=== PATIENT | male | born 1955 | race Caucasian/White ===

== ENCOUNTER 2016-09-12 10:16 | Emergency (ER) | payer SELFPAY ==
[2016-09-12] MEDS ORDERED: SODIUM BICARBONATE 8.4% INJ 50 ML SYRINGE ONE (10:17)
[2016-09-12] MEDS ORDERED: EPINEPHrine 1MG/10ML SYRINGE 1.5IN ONE (10:17)
[2016-09-12] MEDS ORDERED: CALCIUM CHLORIDE 10% 1 GM/10 ML SYR ONE (10:17)
--- NOTE | 2016-09-12 14:21 | EDDOCDS ---
Nurse's Notes [facility] Name: Gregg Barahona Age: 60 yrs Sex: Male : 1955 Arrival Date: 09/12/2016 Time: 10:16 Bed 21 Private MD: Diagnosis: Cardiac arrest Presentation: 09/12 10:23 Presenting complaint:. kc3 10:31 Presenting complaint: EMS states: [place] for kc3 unknown amount ot time. Method of arrival: Ambulance: direct to room. Care prior to arrival: oral intubation, Pt intubated at 22cm at the lip with #7 by EMS FIRE SUPPORT SPECIALIST. CPR performed by EMS and is still in progress Medications administered prior to arrival:. Compressions began prior to arrival. 10:31 Acuity: MARCIN Level 1 kc3 10:32 Care prior to arrival: Medications administered prior to arrival: 2mg intranasal kc3 Narcan, and 2 doses of 1 mg Epi administered by EMS FIRE SUPPORT SPECIALIST. Historical: - Allergies: Unable to obtain; - Home Meds: 1. Unknown - PMHx: Unable to obtain; - PSHx: Unable to obtain; Screenin:04 Abuse/DV Screen: The patient / caregiver reports he/she is: pt cannot be assessed for kc3 living situation at this time. Nutritional screening: Unable to Assess. Assessment: 11:04 CPR assessment: unresponsive, no respiratory effort, intubated, cyanotic. Cardiac kc3 rhythm is asystole. General:. Neurological: Level of Consciousness is unresponsive. 11:08 General: SEE SCANNED CPR FLOWSHEET FOR DOCUMENTATION. . kc3 12:16 General: One benefit card for Maricel Kohler and one benefit card for Jean Escobedo given kc3 to Officer massiel Martínez #[id number] witnessed by Loni Aguero RN. . 12:29 General: black cell phone given to scenario writer by EMs that brought pt in- placed in pt srm belonging bag. Vital Signs: 10:16 kc3 10:20 Temp 93.7(R); kc3 11:12 BP 0 / 0; Pulse 0; Resp 0; Pulse Ox 0% ; Weight 71.4 kg; kc3 10:16 VS unable to obtain at time of arrival kc3 ED Course: 10:17 Patient visited by Chantal Doll, Gravity Prospecting Operator. deg 10:17 Orin Reed,RN is Primary Nurse. deg 10:17 Patient moved to Waiting deg 10:17 Patient moved to 1 deg 10:32 Patient name changed from Justin\S\\S\Quinn\S\ to Gregg\S\ \S\Jun. EDMS 10:38 Patient name changed from Gregg\S\ \S\Jun\S\ to Gregg\S\J\S\Jun. EDMS 10:40 Rashmi Napier MD is Attending Physician. fg 10:40 Patient visited by Rashmi Napier MD. fg 11:09 Patient moved to 21 hs1 11:22 [facility] Payment Agreement was scanned into [employer] and attached to record. jp5 12:49 Other: CHECLIST AND BELONGINGS was scanned into [employer] and attached to record. deg 13:29 Rashmi Napier MD is Pronouncing Provider. fg 14:18 Other: MAX CART RECORD was scanned into [employer] and attached to record. deg Administered Medications: 10:17 Drug: Sodium Bicarbonate 1 amp {Note: administered by Loni Aguero RN.} Route: kc3 IVP; Site: left antecubital; 10:17 Drug: Calcium Chloride 1 grams [calcium chloride 100 mg/mL (10 %) intravenous syringe kc3 (10 mL)] {Note: administered by Loni Aguero RN .} Route: IVP; Site: left antecubital; 10:19 Drug: EPINEPHrine 1 mg [epinephrine 0.1 mg/mL injection syringe (10 mL)] {Note: kc3 administered by Loni Aguero RN .} Route: IVP; Site: left antecubital; 10:22 Drug: EPINEPHrine 1 mg [epinephrine 0.1 mg/mL injection syringe (10 mL)] {Note: kc3 administered by Loni Aguero RN.} Route: IVP; Site: left antecubital; RT: 10:28 Ventilation: Ventilator Settings. Assist ventilation with Ambu bag. CPR Time: 8Minutes. cs15 Order Results: There are currently no results for this order. Outcome: 11:13 Code Team Members : Rashmi Napier MD Medication Nurse: Loni Aguero RN Other Team kc3 Members: MARC Kwong Nursing Vp & General Counsel: Vivian Swann RN ED Worship Leader: ONEL Couch. Rhythm strips are placed in the patient chart. Outcome Patient . Patient : Time of 10:25 Pronounced by Rashmi Napier MD Family Notified: by Shy Lindsay, ERIC. [facility] MD notified Dr. Mondragon by Dr. Napier. Condition: . 11:19 Condition: Waiting for family arrive prior to taking pt to [facility]. 3 13:30 Patient . fg 14:21 Patient left the ED. [facility] Signatures: Dispatcher Med[employer] EDMS Chantal Doll, Gravity Prospecting Operator Unit deg Shy Lindsay, RN ERIC Loni Wells RN RN [facility] Angie Crum RN RN 1 Alexandra Carpenter 5 Rashmi Napier MD MD Orin Reed RN RN 3 Yvon Walters,RT RT cs15 Corrections: (The following items were deleted from the chart) 10:57 10:56 VS unable to obtain at time of arrival ; [email or web address] 11:12 10:31 Care prior to arrival: oral intubation, CPR performed by EMS and is still in kc3 progress [facility] 11:12 10:32 Care prior to arrival: Medications administered prior to arrival: [place] [id number] MTDD
--- NOTE | 2016-09-12 14:21 | EDDOCDS ---
Physician Documentation [facility] Name: Gregg Barahona Age: 60 yrs Sex: Male : 1955 Arrival Date: 09/12/2016 Time: 10:16 Bed 21 Private MD: Disposition: Patient pronounced on 09/12/16 10:25 by Rashmi Napier. Impression: Cardiac arrest. Historical: - Allergies: Unable to obtain; - Home Meds: 1. Unknown - PMHx: Unable to obtain; - PSHx: Unable to obtain; Vital Signs: 09/12 10:16 kc3 10:20 Temp 93.7(R); kc3 11:12 BP 0 / 0; Pulse 0; Resp 0; Pulse Ox 0% ; Weight 71.4 kg / 157.41 lbs; kc3 10:16 VS unable to obtain at time of arrival kc3 MDM: 11:22 [facility] Payment Agreement was scanned into [employer] and attached to record. jp5 11:22 Financial registration complete. jp5 12:49 Other: CHECLIST AND BELONGINGS was scanned into [employer] and attached to record. deg 14:18 Other: MAX CART RECORD was scanned into [employer] and attached to record. deg Administered Medications: 10:17 Drug: Sodium Bicarbonate 1 amp {Note: administered by Loni Aguero RN.} Route: kc3 IVP; Site: left antecubital; 10:17 Drug: Calcium Chloride 1 grams [calcium chloride 100 mg/mL (10 %) intravenous syringe kc3 (10 mL)] {Note: administered by Loni Aguero RN .} Route: IVP; Site: left antecubital; 10:19 Drug: EPINEPHrine 1 mg [epinephrine 0.1 mg/mL injection syringe (10 mL)] {Note: kc3 administered by Loni Aguero RN .} Route: IVP; Site: left antecubital; 10:22 Drug: EPINEPHrine 1 mg [epinephrine 0.1 mg/mL injection syringe (10 mL)] {Note: kc3 administered by Loni Aguero RN.} Route: IVP; Site: left antecubital; Signatures: Chantal Doll, Trimming Caser Unit deg Shy Lindsay RN RN kpj Price, Jennalee jp5 Napier, Rashmi, MD MD fg Reed,Orin,RN RN kc3 The chart was reviewed and I authenticate all verbal orders and agree with the evaluation and treatment provided.Attachments: : [facility] Payment Agreement jp5 MTDD
--- NOTE | 2016-09-14 15:23 | EDDOCDS ---
Physician Documentation [facility] Name: Gregg Barahona Age: 60 yrs Sex: Male : 1955 Arrival Date: 09/12/2016 Time: 10:16 Bed 21 Private MD: Disposition: Patient pronounced on 09/12/16 10:25 by Rashmi Napier. Impression: Cardiac arrest. Historical: - Allergies: Unable to obtain; - Home Meds: 1. Unknown - PMHx: Unable to obtain; - PSHx: Unable to obtain; Vital Signs: 09/12 10:16 kc3 10:20 Temp 93.7(R); kc3 11:12 BP 0 / 0; Pulse 0; Resp 0; Pulse Ox 0% ; Weight 71.4 kg / 157.41 lbs; kc3 10:16 VS unable to obtain at time of arrival kc3 MDM: 11:22 [facility] Payment Agreement was scanned into Zim[employer] and attached to record. jp5 11:22 Financial registration complete. jp5 12:49 Other: CHECLIST AND BELONGINGS was scanned into [employer] and attached to record. deg 14:18 Other: MAX CART RECORD was scanned into [employer] and attached to record. deg 09/13 04:13 T-Sheet-- Draft Copy was scanned into [employer] and attached to record. hs2 09:55 Rhythm Strip was scanned into [employer] and attached to record. gb Administered Medications: 09/12 10:17 Drug: Sodium Bicarbonate 1 amp {Note: administered by Loni Aguero RN.} Route: kc3 IVP; Site: left antecubital; 10:17 Drug: Calcium Chloride 1 grams [calcium chloride 100 mg/mL (10 %) intravenous syringe kc3 (10 mL)] {Note: administered by Loni Aguero RN .} Route: IVP; Site: left antecubital; 10:19 Drug: EPINEPHrine 1 mg [epinephrine 0.1 mg/mL injection syringe (10 mL)] {Note: kc3 administered by Loni Aguero RN .} Route: IVP; Site: left antecubital; 10:22 Drug: EPINEPHrine 1 mg [epinephrine 0.1 mg/mL injection syringe (10 mL)] {Note: kc3 administered by Loni Aguero RN.} Route: IVP; Site: left antecubital; Signatures: Chantal Doll, Sr. Logistics Analyst Unit deg Shy Lindsay, RN RN kpj Miranda Gibbs, Reg Reg gb Alexandra Carpenter jp5 Rashmi Napier MD MD Orin Reed,RN RN kc3 Shannan White, Reg Reg hs2 The chart was reviewed and I authenticate all verbal orders and agree with the evaluation and treatment provided.Attachments: 11:22 [facility] Payment Agreement jp5 09/13 04:13 T-Sheet-- Draft Copy hs2 Chart Complete MTDD
--- NOTE | 2016-09-14 15:23 | EDDOCDS ---
Physician Documentation [facility] Name: Gregg Barahona Age: 60 yrs Sex: Male : 1955 Arrival Date: 09/12/2016 Time: 10:16 Bed 21 Private MD: Disposition: Patient pronounced on 09/12/16 10:25 by Rashmi Napier. Impression: Cardiac arrest. Historical: - Allergies: Unable to obtain; - Home Meds: 1. Unknown - PMHx: Unable to obtain; - PSHx: Unable to obtain; Vital Signs: 09/12 10:16 kc3 10:20 Temp 93.7(R); kc3 11:12 BP 0 / 0; Pulse 0; Resp 0; Pulse Ox 0% ; Weight 71.4 kg / 157.41 lbs; kc3 10:16 VS unable to obtain at time of arrival kc3 MDM: 11:22 [facility] Payment Agreement was scanned into [employer] and attached to record. jp5 11:22 Financial registration complete. jp5 12:49 Other: CHECLIST AND BELONGINGS was scanned into [employer] and attached to record. deg 14:18 Other: MAX CART RECORD was scanned into [employer] and attached to record. deg 09/13 04:13 T-Sheet-- Draft Copy was scanned into [employer] and attached to record. hs2 09:55 Rhythm Strip was scanned into [employer] and attached to record. gb Administered Medications: 09/12 10:17 Drug: Sodium Bicarbonate 1 amp {Note: administered by Loni Aguero RN.} Route: kc3 IVP; Site: left antecubital; 10:17 Drug: Calcium Chloride 1 grams [calcium chloride 100 mg/mL (10 %) intravenous syringe kc3 (10 mL)] {Note: administered by Loni Aguero RN .} Route: IVP; Site: left antecubital; 10:19 Drug: EPINEPHrine 1 mg [epinephrine 0.1 mg/mL injection syringe (10 mL)] {Note: kc3 administered by Loni Aguero RN .} Route: IVP; Site: left antecubital; 10:22 Drug: EPINEPHrine 1 mg [epinephrine 0.1 mg/mL injection syringe (10 mL)] {Note: kc3 administered by Loni Aguero RN.} Route: IVP; Site: left antecubital; Signatures: Chantal Doll, Automated Access Systems Technician Unit deg Shy Lindsay, RN RN kpj Miranda Gibbs, Reg Reg gb Alexandra Carpenter jp5 Rashmi Napier MD MD Orin Reed,RN RN kc3 Shannan White, Reg Reg hs2 The chart was reviewed and I authenticate all verbal orders and agree with the evaluation and treatment provided.Attachments: 11:22 [facility] Payment Agreement jp5 09/13 04:13 T-Sheet-- Draft Copy hs2 Chart Complete MTDD
--- NOTE | 2016-09-14 15:23 | EDDOCDS ---
Nurse's Notes [facility] Name: Gregg Barahona Age: 60 yrs Sex: Male : 1955 Arrival Date: 09/12/2016 Time: 10:16 Bed 21 Private MD: Diagnosis: Cardiac arrest Presentation: 09/12 10:23 Presenting complaint:. kc3 10:31 Presenting complaint: EMS states: Pt [place] for kc3 unknown amount ot time. Method of arrival: Ambulance: direct to room. Care prior to arrival: oral intubation, Pt intubated at 22cm at the lip with #7 by EMS BROADCAST CORRESPONDENT. CPR performed by EMS and is still in progress Medications administered prior to arrival:. Compressions began prior to arrival. 10:31 Acuity: MARCIN Level 1 kc3 10:32 Care prior to arrival: Medications administered prior to arrival: 2mg intranasal kc3 Narcan, and 2 doses of 1 mg Epi administered by EMS BROADCAST CORRESPONDENT. Historical: - Allergies: Unable to obtain; - Home Meds: 1. Unknown - PMHx: Unable to obtain; - PSHx: Unable to obtain; Screenin:04 Abuse/DV Screen: The patient / caregiver reports he/she is: pt cannot be assessed for kc3 living situation at this time. Nutritional screening: Unable to Assess. Assessment: 11:04 CPR assessment: unresponsive, no respiratory effort, intubated, cyanotic. Cardiac kc3 rhythm is asystole. General:. Neurological: Level of Consciousness is unresponsive. 11:08 General: SEE SCANNED CPR FLOWSHEET FOR DOCUMENTATION. . kc3 12:16 General: One benefit card for Maricel Kohler and one benefit card for Jean Escobedo given kc3 to Officer massiel Martínez #[id number] witnessed by Loni Aguero RN. . 12:29 General: black cell phone given to contract technical writer by EMs that brought pt in- placed in pt srm belonging bag. Vital Signs: 10:16 kc3 10:20 Temp 93.7(R); kc3 11:12 BP 0 / 0; Pulse 0; Resp 0; Pulse Ox 0% ; Weight 71.4 kg; kc3 10:16 VS unable to obtain at time of arrival kc3 ED Course: 10:17 Patient visited by Chantal Doll, Animal Caretaker Supervisor. deg 10:17 Orin Reed,RN is Primary Nurse. deg 10:17 Patient moved to Waiting deg 10:17 Patient moved to 1 deg 10:32 Patient name changed from Justin\S\\S\Quinn\S\ to Gregg\S\ \S\Jun. EDMS 10:38 Patient name changed from Gregg\S\ \S\Jun\S\ to Gregg\S\J\S\Jun. EDMS 10:40 Rashmi Napier MD is Attending Physician. fg 10:40 Patient visited by Rashmi Napier MD. fg 11:09 Patient moved to 21 hs1 11:22 [facility] Payment Agreement was scanned into [employer] and attached to record. jp5 12:49 Other: CHECLIST AND BELONGINGS was scanned into [employer] and attached to record. deg 13:29 Rashmi Napier MD is Pronouncing Provider. fg 14:18 Other: MAX CART RECORD was scanned into [employer] and attached to record. deg 01 04:13 T-Sheet-- Draft Copy was scanned into Sano and attached to record. hs2 09:55 Rhythm Strip was scanned into Sano and attached to record. gb Administered Medications: 09/12 10:17 Drug: Sodium Bicarbonate 1 amp {Note: administered by Loni Aguero RN.} Route: kc3 IVP; Site: left antecubital; 10:17 Drug: Calcium Chloride 1 grams [calcium chloride 100 mg/mL (10 %) intravenous syringe kc3 (10 mL)] {Note: administered by Loni Aguero RN .} Route: IVP; Site: left antecubital; 10:19 Drug: EPINEPHrine 1 mg [epinephrine 0.1 mg/mL injection syringe (10 mL)] {Note: kc3 administered by Loni Aguero RN .} Route: IVP; Site: left antecubital; 10:22 Drug: EPINEPHrine 1 mg [epinephrine 0.1 mg/mL injection syringe (10 mL)] {Note: kc3 administered by Loni Aguero RN.} Route: IVP; Site: left antecubital; Attachments: 09:55 Rhythm Strip gb RT: 09/12 10:28 Ventilation: Ventilator Settings. Assist ventilation with Ambu bag. CPR Time: 8Minutes. cs15 Order Results: There are currently no results for this order. Outcome: 11:13 Code Team Members : Rashmi Napier MD Medication Nurse: Loni Aguero, RN Other Team [facility] Members: MARC Kwong Nursing Animal Researcher: Vivian Swann, TIME LOCK EXPERT Material Stress Tester: ONEL Couch. Rhythm strips are placed in the patient chart. Outcome Patient . Patient : Time of 10:25 Pronounced by Rashmi Napier MD Family Notified: by Shy Lindsay, ERIC. [facility] MD notified Dr. Mondragon by Dr. Napier. Condition: . 11:19 Condition: Waiting for family arrive prior to taking pt to [facility]. kc3 13:30 Patient . fg 14:21 Patient left the ED. [facility] Signatures: Dispatcher Med[employer] EDMS Chantal Doll, Animal Caretaker Supervisor Unit deg Shy Lindsay, RN RN Loni Wells, RN RN [facility] Miranda Gibbs, Reg Reg gb Angie Crum RN RN hs1 Alexandra Carpenter 5 Rashmi Napier MD MD Orin ReedRN RN 3 Yvon Walters,RT RT cs15 Shannan White, Reg Reg hs2 Corrections: (The following items were deleted from the chart) 10:57 10:56 VS unable to obtain at time of arrival ; 3 kc3 11:12 10:31 Care prior to arrival: oral intubation, CPR performed by EMS and is still in kc3 progress 3 11:12 10:32 Care prior to arrival: Medications administered prior to arrival: [facility] Chart Complete MTDD
== END 2016-09-12 10:25 | disposition expired ==
LOC: M ED 10:16 → EDBD 10:16 → M ED 10:25
DX: I46.9 Cardiac arrest, cause unspecified (principal)